=== PATIENT | female | born 1975 | race African-American/Black ===

== ENCOUNTER 2017-10-17 03:30 | Emergency (ER) | payer BC, MEDICAID ==
[~2017-10-17] VITALS: Ht 167.6 cm; Wt 140.0 kg
[~2017-10-17 03:30] MED LIST: VITAMIN; [UNRECOGNIZED DRUG - REMARK]
[2017-10-17] MEDS ORDERED: SODIUM CHLORIDE 0.9% 1,000 ML IV ONE (04:45)
[2017-10-17 05:13] LABS: CHLORIDE 102 mEq/L (98-107)
[2017-10-17 05:14] LABS: BASOPHILS % 0.7 % (0.0-2.0); HEMOGLOBIN. 13.1 g/dL (12.0-16.0); LYMPHOCYTES % 30.5 % (20.0-50.0); MEAN CORPUSCULAR VOLUME 85.3 fL (81.0-99.0); MEAN PLATELET VOLUME 9.2 fl (7.4-10.4); MONOCYTES % 13.4 % (2.0-8.0); NEUTROPHILS % 47.4 % (40.0-76.0); PLATELET 240 x1000/uL (130-400); RED BLOOD CELL COUNT 4.69 mill/uL (4.2-5.4); RED CELL DISTRIBUTION WIDTH 14.5 % (11.6-14.6)
[2017-10-17] MEDS ORDERED: KETOROLAC 30MG/ML VIAL IV ONE (05:15)
[2017-10-17 05:23] LABS: B-HCG QUANTITATIVE < 1 mIU/mL (<3)
[2017-10-17 07:51] VITALS: BP 118/58
== END 2017-10-17 07:52 | disposition home or self-care (01) ==
LOC: ER 03:30
DX: D25.9 Leiomyoma of uterus, unspecified (principal); I10 Essential (primary) hypertension; N92.0 Excessive and frequent menstruation with regular cycle; V43.52XA Car driver injured in collision with other type car in traffic accident, initial encounter; N83.201 Unspecified ovarian cyst, right side
CPT/HCPCS: 36415; 76856; 80053; 84702; 85025; 86850; 86900; 86901; 96374; 99285; J1885; J7030; Z7610

== ENCOUNTER 2018-10-02 17:41 | Emergency (ER) | payer MEDICAID ==
[~2018-10-02] VITALS: Ht 172.7 cm; Wt 126.0 kg
[2018-10-02 21:27] VITALS: BP 130/74
== END 2018-10-02 21:33 | disposition home or self-care (01) ==
LOC: ER 17:41
DX: T81.31XD Disruption of external operation (surgical) wound, not elsewhere classified, subsequent encounter (principal); I10 Essential (primary) hypertension; E66.01 Morbid (severe) obesity due to excess calories; Z68.41 Body mass index [BMI] 40.0-44.9, adult; Z79.899 Other long term (current) drug therapy; Z90.710 Acquired absence of both cervix and uterus
CPT/HCPCS: 99283

== ENCOUNTER 2018-12-19 10:07 | Inpatient (IN) | payer MEDICAID ==
[~2018-12-19] VITALS: Ht 154.9 cm; Wt 127.0 kg
[2018-12-19] MEDS ORDERED: ACETAMINOPHEN 650MG/20.3ML UDC PO ONE (10:30)
[2018-12-19] MEDS ORDERED: SODIUM CHLORIDE 0.9% 1000ML BAG (SEPSIS BOLUS) IV ONE (10:30)
[2018-12-19] MEDS ORDERED: KETOROLAC 15MG/ML VIAL IV ONE (10:30)
[2018-12-19] MEDS ORDERED: CEFTRIAXONE 1 G PREMIX 50 ML IV STA (10:53)
[2018-12-19] MEDS ORDERED: AZITHROMYCIN 500 MG in DEXT 5% WATER 250 ML IV STA (10:53)
[2018-12-19 11:07] LABS: BASOPHILS % 0.3 % (0.0-2.0); EOSINOPHILS % 0.3 % (0.0-5.0); HEMATOCRIT. 37.1 % (36.0-48.0); HEMOGLOBIN. 12.2 g/dL (12.0-16.0); LYMPHOCYTES % 7.1 % (20.0-50.0); MEAN CORPUSCULAR HEMOGLOBIN 26.4 pg (28.0-32.0); MEAN CORPUSCULAR VOLUME 80.1 fL (81.0-99.0); MONOCYTES % 13.3 % (2.0-8.0); PLATELET 198 x1000/uL (130-400); RED BLOOD CELL COUNT 4.63 mill/uL (4.2-5.4); RED CELL DISTRIBUTION WIDTH 16.2 % (11.6-14.6)
[2018-12-19 11:16] LABS: CHLORIDE 100 mEq/L (98-107); INR 1.1; PROTHROMBIN TIME 11.8 sec (9.6-11.0)
[2018-12-19 11:29] LABS: CLARITY URINE TURBID (CLEAR); COLOR URINE DARK YELLOW (YELLOW); KETONES URINE TRACE (NEGATIVE); LEUKOCYTE ESTERASE URINE TRACE (NEGATIVE); NITRITE URINE NEGATIVE (NEGATIVE); OCCULT BLOOD URINE NEGATIVE (NEGATIVE); PH URINE 5.5 (4.5-8.0); PROTEIN URINE 3+ (NEGATIVE); SPECIFIC GRAVITY URINE 1.025 (1.005-1.030)
[2018-12-19 13:00] VITALS: BP 105/55
[2018-12-19] MEDS ORDERED: ONDANSETRON HCL 4MG/2ML INJ IV PRN (15:00)
[2018-12-19] MEDS ORDERED: HYDROCODONE/ACETAMINOPHEN 5/325MG TABLET PO PRN (15:00)
[2018-12-19] MEDS ORDERED: HYDR25TA PO (15:44)
[2018-12-19] MEDS ORDERED: AMLO10TA80 MT (15:44)
[2018-12-19] MEDS ORDERED: LOSA50TA41 MT (15:44)
[2018-12-19 16:00] VITALS: BP 121/46
[2018-12-19] MEDS: SODIUM CHLORIDE 0.9% 1,000 ML IV SCH (18:04)
[2018-12-19] MEDS: ACETAMINOPHEN 325MG TABLET PO PRN (18:04)
[2018-12-19] MEDS: AZITHROMYCIN 500 MG in DEXT 5% WATER 250 ML IV SCH (18:15)
[2018-12-19 20:06] VITALS: BP 124/75
[2018-12-19] MEDS ORDERED: ENOXAPARIN 40MG/0.4ML SYR SUBCUT SCH (21:00)
[2018-12-19] MEDS ORDERED: IOHEXOL-350 100 ML BOTTLE ONE (22:47)
[2018-12-20] VITALS: BP 95/49
[2018-12-20 02:14] LABS: CREATINE KINASE 471 IU/L (26-192)
[2018-12-20 02:15] LABS: CREATINE KINASE MB FRACTION < 1.0 ng/mL (0.5-3.6)
[2018-12-20 04:00] VITALS: BP 117/53
[2018-12-20] MEDS: SODIUM CHLORIDE 0.9% 1,000 ML IV SCH ×2 (06:17→11:00)
[2018-12-20] MEDS: ACETAMINOPHEN 325MG TABLET PO PRN (06:24)
[2018-12-20 06:56] LABS: HEMATOCRIT. 36.3 % (36.0-48.0); HEMOGLOBIN. 12.1 g/dL (12.0-16.0); MEAN CORPUSCULAR HEMOGLOBIN 26.6 pg (28.0-32.0); MEAN CORPUSCULAR VOLUME 79.7 fL (81.0-99.0); MEAN PLATELET VOLUME 10.3 fl (7.4-10.4); PLATELET 194 x1000/uL (130-400); RED BLOOD CELL COUNT 4.56 mill/uL (4.2-5.4); RED CELL DISTRIBUTION WIDTH 16.8 % (11.6-14.6)
[2018-12-20 07:24] LABS: CHLORIDE 102 mEq/L (98-107)
[2018-12-20 07:47] LABS: CREATINE KINASE MB FRACTION < 1.0 ng/mL (0.5-3.6)
[2018-12-20 07:49] LABS: CREATINE KINASE 534 IU/L (26-192)
[2018-12-20 07:51] LABS: HDL CHOLESTEROL 32 mg/dL (40-59); LDL CHOLESTEROL 53 mg/dL (5-100)
[2018-12-20 08:00] VITALS: BP 111/58
[2018-12-20] MEDS ORDERED: LOSARTAN POTASSIUM 50 MG TABLET PO SCH (09:00)
[2018-12-20] MEDS ORDERED: HYDROCHLOROTHIAZIDE 25MG TABLET PO SCH ×3 (09:00)
[2018-12-20] MEDS: LOSARTAN POTASSIUM 50 MG TABLET PO SCH (09:00)
[2018-12-20] MEDS ORDERED: MEDICATION NOT ON FORMULARY EA (Losartan Potassium 1 TAB) MT SCH (09:00)
[2018-12-20] MEDS ORDERED: AMLODIPINE 10MG TABLET PO SCH ×3 (09:00)
[2018-12-20] MEDS ORDERED: ENOXAPARIN 40MG/0.4ML SYR SUBCUT SCH (10:30)
[2018-12-20] MEDS ORDERED: POTASSIUM CHLORIDE 20MEQ TABLET SR PO NR (10:30)
[2018-12-20] MEDS ORDERED: CLONIDINE 0.1MG TABLET PO PRN (11:15)
[2018-12-20 12:00] VITALS: BP 119/63
[2018-12-20 12:22] LABS: *COCAINE SCREEN URINE NEGATIVE (NEGATIVE); CANNABINOID URINE SCREEN NEGATIVE (NEGATIVE); METHADONE URINE SCREEN NEGATIVE (NEGATIVE)
[2018-12-20 12:23] LABS: *AMPHETAMINES SCREEN URINE NEGATIVE (NEGATIVE); *BARBITURATES SCREEN URINE NEGATIVE (NEGATIVE); *BENZODIAZEPINES SCREEN URINE NEGATIVE (NEGATIVE); OPIATES URINE SCREEN NEGATIVE (NEGATIVE)
[2018-12-20 12:27] LABS: PHENCYCLIDINE URINE SCREEN NEGATIVE (NEGATIVE)
[2018-12-20] MEDS ORDERED: METHYLPREDNISOLONE SOD SUCC 125 MG/2 ML VIAL IV NR (13:00)
[2018-12-20] MEDS: CEFTRIAXONE 1 G PREMIX 50 ML IV SCH (13:24)
[2018-12-20 16:00] VITALS: BP 116/61
[2018-12-20 16:06] LABS: CREATINE KINASE 652 IU/L (26-192)
[2018-12-20 16:07] LABS: CREATINE KINASE MB FRACTION < 1.0 ng/mL (0.5-3.6)
[2018-12-20] MEDS: IPRATROPIUM/ALBUTEROL 0.5-3(2.5)MG/3ML NEB HHN SCH ×2 (16:18→20:51)
[2018-12-20 16:52] LABS: PLATELET ESTIMATE NORMAL
[2018-12-20] MEDS: AZITHROMYCIN 500 MG in DEXT 5% WATER 250 ML IV SCH (18:11)
[2018-12-20 20:00] VITALS: BP 118/68
[2018-12-20] MEDS: METHYLPREDNISOLONE SOD SUCC 40 MG/ML VIAL IV SCH (21:58)
[2018-12-20] MEDS: ENOXAPARIN 30MG/0.3ML SYR SUBCUT SCH (21:58)
[2018-12-20] MEDS: AMLODIPINE 5MG TABLET PO SCH (21:59)
[2018-12-21] VITALS: BP 115/55
[2018-12-21] MEDS: IPRATROPIUM/ALBUTEROL 0.5-3(2.5)MG/3ML NEB HHN SCH ×6 (00:50→20:45)
[2018-12-21 04:00] VITALS: BP 127/71
[2018-12-21] MEDS: GUAIFENESIN/CODEINE 200-20MG/10ML UDC PO PRN ×2 (05:33→12:22)
[2018-12-21] MEDS: METHYLPREDNISOLONE SOD SUCC 40 MG/ML VIAL IV SCH ×3 (06:48→21:15)
[2018-12-21] MEDS: ENOXAPARIN 30MG/0.3ML SYR SUBCUT SCH ×2 (08:21→21:15)
[2018-12-21] MEDS: AMLODIPINE 5MG TABLET PO SCH ×2 (08:22→21:00)
[2018-12-21] MEDS: LOSARTAN POTASSIUM 50 MG TABLET PO SCH (08:22)
[2018-12-21] MEDS ORDERED: POTASSIUM CHLORIDE 20MEQ TABLET SR PO NR (11:45)
[2018-12-21] MEDS: CEFTRIAXONE 1 G PREMIX 50 ML IV SCH (12:20)
[2018-12-21] MEDS: SODIUM CHLORIDE 0.9% 1,000 ML IV SCH (12:21)
[2018-12-21] MEDS ORDERED: VANCOMYCIN 2,000 MG in DEXT 5% WATER 500 ML IV NR (16:00)
[2018-12-21] MEDS: AZITHROMYCIN 500 MG in DEXT 5% WATER 250 ML IV SCH (16:53)
[2018-12-21 20:00] VITALS: BP 116/54
[2018-12-22] VITALS: BP 139/63
[2018-12-22] MEDS: IPRATROPIUM/ALBUTEROL 0.5-3(2.5)MG/3ML NEB HHN SCH ×6 (01:12→19:59)
[2018-12-22] MEDS ORDERED: VANCOMYCIN 1250MG in DEXTROSE 5% WATER 250ML IV SCH (02:00)
[2018-12-22] MEDS: GUAIFENESIN/CODEINE 200-20MG/10ML UDC PO PRN ×2 (02:29→23:13)
[2018-12-22] MEDS: SODIUM CHLORIDE 0.9% 1,000 ML IV SCH ×4 (02:30→23:00)
[2018-12-22 04:00] VITALS: BP 138/81
[2018-12-22] MEDS: METHYLPREDNISOLONE SOD SUCC 40 MG/ML VIAL IV SCH ×3 (06:18→21:53)
[2018-12-22] MEDS: ACETAMINOPHEN 325MG TABLET PO PRN (06:53)
[2018-12-22 07:45] LABS: HEMATOCRIT. 32.1 % (36.0-48.0); HEMOGLOBIN. 10.6 g/dL (12.0-16.0); MEAN CORPUSCULAR HEMOGLOBIN 26.1 pg (28.0-32.0); MEAN CORPUSCULAR VOLUME 79.4 fL (81.0-99.0); MEAN PLATELET VOLUME 10.4 fl (7.4-10.4); PLATELET 200 x1000/uL (130-400); RED BLOOD CELL COUNT 4.05 mill/uL (4.2-5.4); RED CELL DISTRIBUTION WIDTH 16.3 % (11.6-14.6)
[2018-12-22 07:59] LABS: CHLORIDE 100 mEq/L (98-107)
[2018-12-22 08:00] VITALS: BP 117/64
[2018-12-22] MEDS: AMLODIPINE 5MG TABLET PO SCH ×2 (08:42→21:53)
[2018-12-22] MEDS: LOSARTAN POTASSIUM 50 MG TABLET PO SCH (09:34)
[2018-12-22] MEDS: ENOXAPARIN 30MG/0.3ML SYR SUBCUT SCH ×2 (09:34→21:52)
[2018-12-22 10:49] LABS: PLATELET ESTIMATE NORMAL
[2018-12-22 12:00] VITALS: BP 106/43
[2018-12-22] MEDS: CEFTRIAXONE 1 G PREMIX 50 ML IV SCH (12:16)
[2018-12-22 16:00] VITALS: BP 113/68
[2018-12-22] MEDS: AZITHROMYCIN 500 MG in DEXT 5% WATER 250 ML IV SCH (16:57)
[2018-12-22] MEDS: VANCOMYCIN 1250MG in DEXTROSE 5% WATER 250ML IV SCH (17:52)
[2018-12-22 20:00] VITALS: BP 144/80
[2018-12-22] MEDS ORDERED: POTASSIUM CHLORIDE 20MEQ TABLET SR PO NR (22:00)
[2018-12-23] VITALS: BP 120/70
[2018-12-23] MEDS: IPRATROPIUM/ALBUTEROL 0.5-3(2.5)MG/3ML NEB HHN SCH ×5 (00:59→16:45)
[2018-12-23 03:59] LABS: HEMATOCRIT. 33.8 % (36.0-48.0); HEMOGLOBIN. 11.1 g/dL (12.0-16.0); MEAN CORPUSCULAR VOLUME 79.3 fL (81.0-99.0); MEAN PLATELET VOLUME 9.1 fl (7.4-10.4); PLATELET 193 x1000/uL (130-400); RED BLOOD CELL COUNT 4.26 mill/uL (4.2-5.4); RED CELL DISTRIBUTION WIDTH 16.9 % (11.6-14.6)
[2018-12-23 04:00] VITALS: BP 115/68
[2018-12-23 04:02] LABS: CHLORIDE 104 mEq/L (98-107)
[2018-12-23 04:10] LABS: VANCOMYCIN TROUGH 13.8 ug/mL (5.0-10.0)
[2018-12-23] MEDS: METHYLPREDNISOLONE SOD SUCC 40 MG/ML VIAL IV SCH ×3 (05:22→21:31)
[2018-12-23] MEDS: VANCOMYCIN 1250MG in DEXTROSE 5% WATER 250ML IV SCH (05:22)
[2018-12-23 07:08] LABS: PLATELET ESTIMATE NORMAL
[2018-12-23 08:00] VITALS: BP 116/59
[2018-12-23] MEDS: AMLODIPINE 5MG TABLET PO SCH ×2 (08:49→21:00)
[2018-12-23] MEDS: GUAIFENESIN/CODEINE 200-20MG/10ML UDC PO PRN ×2 (09:00→22:22)
[2018-12-23] MEDS: LOSARTAN POTASSIUM 50 MG TABLET PO SCH (09:00)
[2018-12-23] MEDS: ENOXAPARIN 30MG/0.3ML SYR SUBCUT SCH ×2 (09:00→21:32)
[2018-12-23 12:00] VITALS: BP 100/48
[2018-12-23] MEDS: CEFTRIAXONE 1 G PREMIX 50 ML IV SCH (12:22)
[2018-12-23 16:00] VITALS: BP 116/49
[2018-12-23] MEDS: AZITHROMYCIN 500 MG in DEXT 5% WATER 250 ML IV SCH (17:26)
[2018-12-23] MEDS ORDERED: VANCOMYCIN 1500MG in DEXTROSE 5% WATER 250ML IV SCH (18:00)
[2018-12-23 20:00] VITALS: BP 100/60
[2018-12-24] VITALS (7 sets, daily range): BP systolic 99–125; BP diastolic 53–75
[2018-12-24] MEDS: SODIUM CHLORIDE 0.9% 1,000 ML IV SCH (00:39)
[2018-12-24] MEDS: IPRATROPIUM/ALBUTEROL 0.5-3(2.5)MG/3ML NEB HHN SCH ×5 (04:55→20:32)
[2018-12-24] MEDS: METHYLPREDNISOLONE SOD SUCC 40 MG/ML VIAL IV SCH ×2 (05:38→13:38)
[2018-12-24] MEDS: AMLODIPINE 5MG TABLET PO SCH (09:00)
[2018-12-24] MEDS: LOSARTAN POTASSIUM 50 MG TABLET PO SCH (09:00)
[2018-12-24] MEDS: ENOXAPARIN 30MG/0.3ML SYR SUBCUT SCH (09:31)
[2018-12-24] MEDS: CEFTRIAXONE 1 G PREMIX 50 ML IV SCH (12:07)
[2018-12-24] MEDS: AZITHROMYCIN 500 MG in DEXT 5% WATER 250 ML IV SCH (17:47)
== END 2018-12-24 21:30 | disposition home or self-care (01) | DRG 720 ==
LOC: ER 10:07 → 8WST 11:26 → EDBEDREQ 11:29 → EDBEDREQTM 11:29 → EDBEDREQSVC 11:29 → ENRESERV 12:04
PROVIDERS: ADMIT Internal Medicine; ATTEND Internal Medicine
PROC: 5A09357 Assistance with Respiratory Ventilation, Less than 24 Consecutive Hours, Continuous Positive Airway Pressure (ICD-10-PCS; principal; 2018-12-23)
PROC: 5A09357 Assistance with Respiratory Ventilation, Less than 24 Consecutive Hours, Continuous Positive Airway Pressure (ICD-10-PCS; 2018-12-24)
DX: A41.9 Sepsis, unspecified organism (principal); J96.01 Acute respiratory failure with hypoxia; J18.1 Lobar pneumonia, unspecified organism; E46 Unspecified protein-calorie malnutrition; I10 Essential (primary) hypertension; R07.89 Other chest pain; N39.0 Urinary tract infection, site not specified; G47.33 Obstructive sleep apnea (adult) (pediatric); E87.6 Hypokalemia; E66.01 Morbid (severe) obesity due to excess calories; R65.20 Severe sepsis without septic shock; Z90.710 Acquired absence of both cervix and uterus; Z68.43 Body mass index [BMI] 50.0-59.9, adult; Z82.49 Family history of ischemic heart disease and other diseases of the circulatory system; Z83.3 Family history of diabetes mellitus
CPT/HCPCS: 36415; 71045; 71275; 80048; 80061; 80202; 80305; 82550; 82553; 83605; 83735; 83880; 84145; 84484; 85379; 87070; 87077; 93005; 93306; 93970; 94640; 94660; 96374; 97116; 97162; 99291; J0456; J0696; J1650; J1885; J2920; J2930; J3370; J7030; J7060; J7620; Q9967

== ENCOUNTER 2020-04-11 17:58 | Emergency (ER) | payer MEDICAID ==
[~2020-04-11] VITALS: Ht 154.9 cm; Wt 146.0 kg
[~2020-04-11 17:58] MED LIST changes: +AMLO10TA80 MT; +HYDR25TA PO; +LOSA50TA41 MT; -VITAMIN; -[UNRECOGNIZED DRUG - REMARK]
[2020-04-11] MEDS ORDERED: MONT10TA21 MT (18:06)
[2020-04-11] MEDS ORDERED: ALBU18HF2 IH (18:06)
[2020-04-11] MEDS ORDERED: LOSARTAN POTASSIUM 50 MG TABLET PO SCH (21:00)
[2020-04-11] MEDS ORDERED: AMLODIPINE 10MG TABLET PO ONE (21:00)
[2020-04-11] MEDS ORDERED: ACETAMINOPHEN 325MG TABLET PO ONE (21:00)
[2020-04-11] MEDS ORDERED: HYDROCHLOROTHIAZIDE 25MG TABLET PO ONE (21:00)
[2020-04-11 23:23] VITALS: BP 127/88
== END 2020-04-11 23:00 | disposition home or self-care (01) ==
LOC: ER 17:58
DX: I10 Essential (primary) hypertension (principal); Z76.0 Encounter for issue of repeat prescription; Z00.00 Encounter for general adult medical examination without abnormal findings; J45.909 Unspecified asthma, uncomplicated; Z90.710 Acquired absence of both cervix and uterus
CPT/HCPCS: 93005; 99284

== ENCOUNTER 2020-05-24 16:26 | Inpatient (IN) | payer MEDICAID ==
[~2020-05-24] VITALS: Ht 154.9 cm; Wt 139.3 kg
[~2020-05-24 16:26] MED LIST changes: +ALBU18HF2 IH; +MONT10TA21 MT
[2020-05-24 18:36] LABS: HEMATOCRIT. 35.6 % (36.0-48.0); MEAN CORPUSCULAR HEMOGLOBIN 27.7 pg (28.0-32.0); MEAN CORPUSCULAR VOLUME 82.2 fL (81.0-99.0); MEAN PLATELET VOLUME 9.9 fl (7.4-10.4); PLATELET 183 x1000/uL (130-400); RED BLOOD CELL COUNT 4.33 mill/uL (4.2-5.4)
[2020-05-24 18:44] LABS: D-DIMER 0.56 mg/L FEU (<0.50); INR 1.1; PROTHROMBIN TIME 11.5 sec (9.6-11.0)
[2020-05-24] MEDS ORDERED: PIPERACILLIN/TAZ 3.375G PREMIX 50 ML IV ONE (18:45)
[2020-05-24] MEDS ORDERED: DEXAMETHASONE 10 MG/ML VIAL IV ONE (18:45)
[2020-05-24] MEDS ORDERED: VANCOMYCIN 1 G PREMIX 200 ML IV ONE (18:45)
[2020-05-24 18:48] LABS: CHLORIDE 98 mEq/L (98-107)
[2020-05-24] MEDS ORDERED: POTASSIUM CHLORIDE 20MEQ TABLET SR PO ONE (19:00)
[2020-05-24 19:38] LABS: PLATELET ESTIMATE NORMAL
[2020-05-24] MEDS ORDERED: ALBUTEROL 6.7GM HFA INHALER ORI PRN (21:15)
[2020-05-24] MEDS ORDERED: ONDANSETRON HCL 4MG/2ML INJ IV PRN (21:15)
[2020-05-24] MEDS ORDERED: IOHEXOL-300 100 ML BOTTLE ONE (23:18)
[2020-05-25 11:18] LABS: BG CARBOXYHEMOGLOBIN 0.3 % (0.5-1.5); BG DEOXYHEMOGLOBIN 5.3 % (0.0-5.0); BG FRACTION INSPIRED OXYGEN 28; BG HCO3 ACT 29.1 mmol/L (22.0-26.0); BG OXYGEN SATURATION 94.7 % (92.0-98.5); BG OXYHEMOGLOBIN 94.4 % (94.0-97.0); BG PCO2 45.4 mmHg (35.0-45.0); BG PH 7.425 (7.350-7.450); BG PO2 70.3 mmHg (75.0-100.0); BG SAMPLE SITE RIGHT RADIAL; BG TOTAL HEMOGLOBIN 13.8 g/dL (12.0-18.0); BG VENT MODE NASAL CANNULA
[2020-05-25 13:00] VITALS: BP 101/60
[2020-05-25] MEDS ORDERED: METF-414 MT (14:07)
[2020-05-25] MEDS ORDERED: FLUT1BLS9 IH (14:07)
[2020-05-25 16:00] VITALS: BP 103/43
[2020-05-25] MEDS ORDERED: ALBUTEROL 6.7GM HFA INHALER ORI SCH (17:00)
[2020-05-25] MEDS: METFORMIN HCL 500MG TABLET PO SCH (17:44)
[2020-05-25] MEDS ORDERED: AZITHROMYCIN 500 MG TABLET PO NR (18:00)
[2020-05-25 18:09] LABS: BG CARBOXYHEMOGLOBIN 0.4 % (0.5-1.5); BG DEOXYHEMOGLOBIN 16.8 % (0.0-5.0); BG HCO3 ACT 29.1 mmol/L (22.0-26.0); BG METHEMOGLOBIN 0.3 % (0.0-1.5); BG OXYGEN SATURATION 83.1 % (92.0-98.5); BG OXYHEMOGLOBIN 82.5 % (94.0-97.0); BG PCO2 40.7 mmHg (35.0-45.0); BG PH 7.472 (7.350-7.450); BG PO2 42.7 mmHg (75.0-100.0); BG TOTAL HEMOGLOBIN 14.7 g/dL (12.0-18.0)
[2020-05-25] MEDS: CEFTRIAXONE 1,000 MG in DEXTROSE 5% WATER 50 ML IV SCH (18:55)
[2020-05-25 20:00] VITALS: BP 117/69
[2020-05-25] MEDS: ENOXAPARIN 40MG/0.4ML SYR SUBCUT SCH (21:52)
[2020-05-25] MEDS: ACETAMINOPHEN 325MG TABLET PO PRN (21:53)
[2020-05-26] VITALS: BP 114/71
[2020-05-26 04:00] VITALS: BP 120/65
[2020-05-26 08:00] VITALS: BP 116/75
[2020-05-26] MEDS: AMLODIPINE 10MG TABLET PO SCH (09:00)
[2020-05-26] MEDS: ACETAMINOPHEN 325MG TABLET PO PRN (10:11)
[2020-05-26] MEDS: HYDROCHLOROTHIAZIDE 25MG TABLET PO SCH (10:12)
[2020-05-26] MEDS: ENOXAPARIN 40MG/0.4ML SYR SUBCUT SCH ×2 (10:12→22:54)
[2020-05-26] MEDS: LOSARTAN POTASSIUM 50 MG TABLET PO SCH (10:12)
[2020-05-26] MEDS: METFORMIN HCL 500MG TABLET PO SCH ×2 (10:12→17:14)
[2020-05-26] MEDS: MONTELUKAST SODIUM 10MG TABLET PO SCH (10:12)
[2020-05-26 12:00] VITALS: BP 115/77
[2020-05-26 16:00] VITALS: BP 116/71
[2020-05-26] MEDS: IPRATROPIUM/ALBUTEROL 0.5-3(2.5)MG/3ML NEB HHN SCH ×2 (16:39→21:06)
[2020-05-26] MEDS: AZITHROMYCIN 250 MG TABLET PO SCH (17:14)
[2020-05-26] MEDS: CEFTRIAXONE 1,000 MG in DEXTROSE 5% WATER 50 ML IV SCH (17:14)
[2020-05-26 17:53] LABS: BASOPHILS % 0.4 % (0.0-2.0); EOSINOPHILS % 0.1 % (0.0-5.0); HEMATOCRIT. 42.4 % (36.0-48.0); HEMOGLOBIN. 13.9 g/dL (12.0-16.0); LYMPHOCYTES % 15.2 % (20.0-50.0); MEAN CORPUSCULAR HEMOGLOBIN 27.2 pg (28.0-32.0); MEAN CORPUSCULAR VOLUME 82.9 fL (81.0-99.0); MEAN PLATELET VOLUME 9.5 fl (7.4-10.4); MONOCYTES % 12.4 % (2.0-8.0); NEUTROPHILS % 71.9 % (40.0-76.0); PLATELET 213 x1000/uL (130-400); RED BLOOD CELL COUNT 5.11 mill/uL (4.2-5.4); RED CELL DISTRIBUTION WIDTH 14.3 % (11.6-14.6)
[2020-05-26 18:01] LABS: CHLORIDE 97 mEq/L (98-107)
[2020-05-26] MEDS ORDERED: POTASSIUM CHLORIDE 20MEQ TABLET SR PO SCH (20:00)
[2020-05-26 20:30] VITALS: BP 134/83
[2020-05-27 00:08] VITALS: BP 116/74
[2020-05-27] MEDS: ACETAMINOPHEN 325MG TABLET PO PRN ×3 (00:31→18:03)
[2020-05-27] MEDS: IPRATROPIUM/ALBUTEROL 0.5-3(2.5)MG/3ML NEB HHN SCH ×6 (00:59→22:10)
[2020-05-27 04:00] VITALS: BP 117/75
[2020-05-27 08:00] VITALS: BP 118/79
[2020-05-27] MEDS: HYDROCHLOROTHIAZIDE 25MG TABLET PO SCH (08:17)
[2020-05-27] MEDS: AMLODIPINE 10MG TABLET PO SCH (08:17)
[2020-05-27] MEDS: ENOXAPARIN 40MG/0.4ML SYR SUBCUT SCH ×2 (08:17→22:04)
[2020-05-27] MEDS: METFORMIN HCL 500MG TABLET PO SCH ×2 (08:17→18:03)
[2020-05-27] MEDS: MONTELUKAST SODIUM 10MG TABLET PO SCH (08:17)
[2020-05-27] MEDS: LOSARTAN POTASSIUM 50 MG TABLET PO SCH (08:17)
[2020-05-27 17:35] LABS: BASOPHILS % 0.3 % (0.0-2.0); EOSINOPHILS % 0.4 % (0.0-5.0); HEMATOCRIT. 37.5 % (36.0-48.0); HEMOGLOBIN. 12.4 g/dL (12.0-16.0); LYMPHOCYTES % 14.4 % (20.0-50.0); MEAN CORPUSCULAR HEMOGLOBIN 27.1 pg (28.0-32.0); MEAN CORPUSCULAR VOLUME 82.4 fL (81.0-99.0); MEAN PLATELET VOLUME 9.3 fl (7.4-10.4); MONOCYTES % 10.6 % (2.0-8.0); NEUTROPHILS % 74.3 % (40.0-76.0); PLATELET 195 x1000/uL (130-400); RED BLOOD CELL COUNT 4.55 mill/uL (4.2-5.4); RED CELL DISTRIBUTION WIDTH 14.1 % (11.6-14.6)
[2020-05-27 17:51] LABS: CHLORIDE 97 mEq/L (98-107)
[2020-05-27] MEDS: CEFTRIAXONE 1,000 MG in DEXTROSE 5% WATER 50 ML IV SCH (18:03)
[2020-05-27] MEDS: AZITHROMYCIN 250 MG TABLET PO SCH (18:03)
[2020-05-27] MEDS ORDERED: POTASSIUM CHLORIDE 20MEQ TABLET SR PO NR (18:15)
[2020-05-27] MEDS ORDERED: ALBUTEROL (0.083%) 2.5MG/3ML NEB HHN PRN (20:15)
[2020-05-27 20:48] VITALS: BP 110/69
[2020-05-27] MEDS: METHYLPREDNISOLONE SOD SUCC 40 MG/ML VIAL IV SCH (22:04)
[2020-05-28 00:45] VITALS: BP 113/67
[2020-05-28] MEDS: IPRATROPIUM/ALBUTEROL 0.5-3(2.5)MG/3ML NEB HHN SCH ×6 (01:40→21:26)
[2020-05-28 04:00] VITALS: BP 130/76
[2020-05-28 07:09] LABS: BASOPHILS % 0.1 % (0.0-2.0); CHLORIDE 97 mEq/L (98-107); EOSINOPHILS % 0.1 % (0.0-5.0); HEMATOCRIT. 36.8 % (36.0-48.0); HEMOGLOBIN. 12.2 g/dL (12.0-16.0); LYMPHOCYTES % 7.3 % (20.0-50.0); MEAN CORPUSCULAR HEMOGLOBIN 27.4 pg (28.0-32.0); MEAN CORPUSCULAR VOLUME 82.2 fL (81.0-99.0); MEAN PLATELET VOLUME 9.5 fl (7.4-10.4); MONOCYTES % 4.5 % (2.0-8.0); PLATELET 224 x1000/uL (130-400); RED BLOOD CELL COUNT 4.47 mill/uL (4.2-5.4); RED CELL DISTRIBUTION WIDTH 14.3 % (11.6-14.6)
[2020-05-28 08:00] VITALS: BP 126/52
[2020-05-28] MEDS: METHYLPREDNISOLONE SOD SUCC 40 MG/ML VIAL IV SCH ×3 (08:06→21:04)
[2020-05-28] MEDS: AMLODIPINE 10MG TABLET PO SCH (09:00)
[2020-05-28] MEDS: HYDROCHLOROTHIAZIDE 25MG TABLET PO SCH (09:52)
[2020-05-28] MEDS: METFORMIN HCL 500MG TABLET PO SCH ×2 (09:52→17:10)
[2020-05-28] MEDS: MONTELUKAST SODIUM 10MG TABLET PO SCH (09:52)
[2020-05-28] MEDS: LOSARTAN POTASSIUM 50 MG TABLET PO SCH (09:52)
[2020-05-28] MEDS: ENOXAPARIN 40MG/0.4ML SYR SUBCUT SCH ×2 (10:04→21:04)
[2020-05-28 12:00] VITALS: BP 113/74
[2020-05-28 14:21] LABS: BG BASE EXCESS 4.3 mmol/L (-2.0-2.0); BG CARBOXYHEMOGLOBIN 0.7 % (0.5-1.5); BG DEOXYHEMOGLOBIN 30.7 % (0.0-5.0); BG FRACTION INSPIRED OXYGEN 21; BG HCO3 ACT 29.5 mmol/L (22.0-26.0); BG METHEMOGLOBIN 0.3 % (0.0-1.5); BG OXYHEMOGLOBIN 68.3 % (94.0-97.0); BG PCO2 46.4 mmHg (35.0-45.0); BG PH 7.421 (7.350-7.450); BG PO2 35.7 mmHg (75.0-100.0); BG SAMPLE SITE RIGHT RADIAL; BG TOTAL HEMOGLOBIN 13.4 g/dL (12.0-18.0); BG VENT MODE ROOM AIR
[2020-05-28 16:00] VITALS: BP 129/70
[2020-05-28] MEDS: AZITHROMYCIN 250 MG TABLET PO SCH (17:10)
[2020-05-28] MEDS: CEFTRIAXONE 1,000 MG in DEXTROSE 5% WATER 50 ML IV SCH (17:55)
[2020-05-28 20:00] VITALS: BP 144/96
[2020-05-29] VITALS: BP 131/83
[2020-05-29] MEDS: IPRATROPIUM/ALBUTEROL 0.5-3(2.5)MG/3ML NEB HHN SCH (01:05)
[2020-05-29] MEDS: METHYLPREDNISOLONE SOD SUCC 40 MG/ML VIAL IV SCH ×3 (03:51→21:58)
[2020-05-29 08:00] VITALS: BP 144/104
[2020-05-29] MEDS: METFORMIN HCL 500MG TABLET PO SCH ×2 (08:54→16:26)
[2020-05-29] MEDS: AMLODIPINE 10MG TABLET PO SCH (08:54)
[2020-05-29] MEDS: MONTELUKAST SODIUM 10MG TABLET PO SCH (08:54)
[2020-05-29] MEDS: LOSARTAN POTASSIUM 50 MG TABLET PO SCH (08:54)
[2020-05-29] MEDS: HYDROCHLOROTHIAZIDE 25MG TABLET PO SCH (08:54)
[2020-05-29] MEDS: ENOXAPARIN 40MG/0.4ML SYR SUBCUT SCH ×2 (08:54→21:58)
[2020-05-29 12:00] VITALS: BP 144/94
[2020-05-29 17:14] VITALS: BP 104/77
[2020-05-29] MEDS: CEFTRIAXONE 1,000 MG in DEXTROSE 5% WATER 50 ML IV SCH (17:47)
[2020-05-29] MEDS: AZITHROMYCIN 250 MG TABLET PO SCH (18:39)
[2020-05-29 20:00] VITALS: BP 90/40
[2020-05-30] VITALS: BP 113/67
[2020-05-30 04:00] VITALS: BP 109/61
[2020-05-30] MEDS: METHYLPREDNISOLONE SOD SUCC 40 MG/ML VIAL IV SCH ×3 (04:59→20:41)
[2020-05-30 08:00] VITALS: BP 105/68
[2020-05-30] MEDS: LOSARTAN POTASSIUM 50 MG TABLET PO SCH ×2 (09:00→09:23)
[2020-05-30] MEDS: HYDROCHLOROTHIAZIDE 25MG TABLET PO SCH (09:00)
[2020-05-30] MEDS: AMLODIPINE 10MG TABLET PO SCH (09:00)
[2020-05-30] MEDS: METFORMIN HCL 500MG TABLET PO SCH ×2 (09:23→18:11)
[2020-05-30] MEDS: MONTELUKAST SODIUM 10MG TABLET PO SCH (09:23)
[2020-05-30] MEDS: ENOXAPARIN 40MG/0.4ML SYR SUBCUT SCH ×2 (09:23→20:43)
[2020-05-30 12:00] VITALS: BP 103/64
[2020-05-30 16:00] VITALS: BP 93/54
[2020-05-30] MEDS: CEFTRIAXONE 1,000 MG in DEXTROSE 5% WATER 50 ML IV SCH (18:12)
[2020-05-30 20:00] VITALS: BP 114/68
[2020-05-31] VITALS: BP 116/84
[2020-05-31 04:00] VITALS: BP 124/72
[2020-05-31] MEDS: METHYLPREDNISOLONE SOD SUCC 40 MG/ML VIAL IV SCH ×3 (04:11→20:33)
[2020-05-31 08:00] VITALS: BP 105/61
[2020-05-31] MEDS: LOSARTAN POTASSIUM 50 MG TABLET PO SCH (09:00)
[2020-05-31] MEDS: AMLODIPINE 10MG TABLET PO SCH (09:00)
[2020-05-31] MEDS: HYDROCHLOROTHIAZIDE 25MG TABLET PO SCH (09:00)
[2020-05-31] MEDS: MONTELUKAST SODIUM 10MG TABLET PO SCH (09:12)
[2020-05-31] MEDS: METFORMIN HCL 500MG TABLET PO SCH ×2 (09:12→17:34)
[2020-05-31] MEDS: ENOXAPARIN 40MG/0.4ML SYR SUBCUT SCH ×2 (09:13→20:34)
[2020-05-31 12:00] VITALS: BP 113/66
[2020-05-31 15:40] LABS: BG BASE EXCESS 2.8 mmol/L (-2.0-2.0); BG CARBOXYHEMOGLOBIN 0.3 % (0.5-1.5); BG DEOXYHEMOGLOBIN 3.2 % (0.0-5.0); BG HCO3 ACT 28.4 mmol/L (22.0-26.0); BG OXYGEN SATURATION 96.8 % (92.0-98.5); BG OXYHEMOGLOBIN 96.5 % (94.0-97.0); BG PCO2 47.2 mmHg (35.0-45.0); BG PH 7.397 (7.350-7.450); BG PO2 90.5 mmHg (75.0-100.0); BG SAMPLE SITE RIGHT RADIAL; BG TOTAL HEMOGLOBIN 13.4 g/dL (12.0-18.0); BG VENT MODE NASAL CANNULA
[2020-05-31 16:00] VITALS: BP 119/65
[2020-05-31 17:52] LABS: BG BASE EXCESS 2.9 mmol/L (-2.0-2.0); BG CARBOXYHEMOGLOBIN 0.3 % (0.5-1.5); BG DEOXYHEMOGLOBIN 9.2 % (0.0-5.0); BG METHEMOGLOBIN 0.4 % (0.0-1.5); BG OXYGEN SATURATION 90.7 % (92.0-98.5); BG OXYHEMOGLOBIN 90.1 % (94.0-97.0); BG PCO2 44.8 mmHg (35.0-45.0); BG PH 7.414 (7.350-7.450); BG PO2 59.5 mmHg (75.0-100.0); BG SAMPLE SITE RIGHT RADIAL; BG TOTAL HEMOGLOBIN 14.1 g/dL (12.0-18.0); BG VENT MODE ROOM AIR
[2020-06-01] VITALS: BP 123/78
[2020-06-01 04:00] VITALS: BP 127/92
[2020-06-01] MEDS: METHYLPREDNISOLONE SOD SUCC 40 MG/ML VIAL IV SCH ×2 (04:00→11:10)
[2020-06-01 08:00] VITALS: BP 120/76
[2020-06-01] MEDS: IPRATROPIUM/ALBUTEROL 0.5-3(2.5)MG/3ML NEB HHN SCH ×3 (08:00→16:00)
[2020-06-01] MEDS: AMLODIPINE 10MG TABLET PO SCH (09:00)
[2020-06-01] MEDS: LOSARTAN POTASSIUM 50 MG TABLET PO SCH (09:00)
[2020-06-01] MEDS: HYDROCHLOROTHIAZIDE 25MG TABLET PO SCH (09:39)
[2020-06-01] MEDS: METFORMIN HCL 500MG TABLET PO SCH ×2 (09:39→17:16)
[2020-06-01] MEDS: MONTELUKAST SODIUM 10MG TABLET PO SCH (09:39)
[2020-06-01] MEDS: ENOXAPARIN 40MG/0.4ML SYR SUBCUT SCH (09:39)
[2020-06-01 12:00] VITALS: BP 117/71
[2020-06-01 16:00] VITALS: BP 132/90
[2020-06-01 18:36] VITALS: BP 132/90
== END 2020-06-01 19:45 | disposition home or self-care (01) | DRG 141 ==
LOC: ER 16:26 → 7WST 20:07 → EDBEDREQTM 20:24 → EDBEDREQ 20:24 → ENRESERV 05-25 10:19 → 6WST 05-25 22:41 → 7EST 05-29 02:20 → 6WST 05-29 17:35 → 6EST 05-30 17:17
PROVIDERS: ADMIT Internal Medicine; ATTEND Internal Medicine
PROC: 5A09357 Assistance with Respiratory Ventilation, Less than 24 Consecutive Hours, Continuous Positive Airway Pressure (ICD-10-PCS; principal; 2020-05-27)
DX: J45.901 Unspecified asthma with (acute) exacerbation (principal); J96.01 Acute respiratory failure with hypoxia; J12.9 Viral pneumonia, unspecified; E87.6 Hypokalemia; E66.9 Obesity, unspecified; E44.0 Moderate protein-calorie malnutrition; Z20.828 Contact with and (suspected) exposure to other viral communicable diseases; E87.1 Hypo-osmolality and hyponatremia; E11.9 Type 2 diabetes mellitus without complications; I10 Essential (primary) hypertension; G47.33 Obstructive sleep apnea (adult) (pediatric); Z68.43 Body mass index [BMI] 50.0-59.9, adult; Z79.899 Other long term (current) drug therapy; Z90.710 Acquired absence of both cervix and uterus; Z82.49 Family history of ischemic heart disease and other diseases of the circulatory system
CPT/HCPCS: 36415; 36600; 71045; 71275; 80048; 80053; 82375; 82805; 83605; 83880; 84145; 84484; 85025; 85379; 93005; 94640; 96365; 99291; C1893; J0696; J1100; J1650; J2543; J2920; J3370; J7060; Q9967; U0003

== ENCOUNTER 2021-04-30 10:05 | Emergency (ER) | payer MEDICAID ==
[~2021-04-30] VITALS: Ht 152.4 cm; Wt 146.0 kg
[~2021-04-30 10:05] MED LIST changes: +FLUT1BLS9 IH; +IPRA3AMP9 NEB; +METF-414 MT; +P20 MT
[2021-04-30] MEDS ORDERED: ACETAMINOPHEN WITH CODEINE 300/30MG TABLET PO STA (10:36)
[2021-04-30 11:40] LABS: CLARITY URINE TURBID (CLEAR); COLOR URINE YELLOW (YELLOW); KETONES URINE NEGATIVE (NEGATIVE); LEUKOCYTE ESTERASE URINE NEGATIVE (NEGATIVE); NITRITE URINE NEGATIVE (NEGATIVE); OCCULT BLOOD URINE NEGATIVE (NEGATIVE); PROTEIN URINE 1+ (NEGATIVE); SPECIFIC GRAVITY URINE 1.016 (1.005-1.030); UROBILINOGEN URINE 0.2 E.U./dL (0.2-1.0)
[2021-04-30] MEDS ORDERED: IBUP-2029 MT (12:37)
[2021-04-30 13:09] VITALS: BP 118/72
== END 2021-04-30 14:50 | disposition home or self-care (01) ==
LOC: ER 10:05
DX: S06.0X9A Concussion with loss of consciousness of unspecified duration, initial encounter (principal); E11.9 Type 2 diabetes mellitus without complications; J44.1 Chronic obstructive pulmonary disease with (acute) exacerbation; I10 Essential (primary) hypertension; J45.909 Unspecified asthma, uncomplicated; Z79.899 Other long term (current) drug therapy; X58.XXXA Exposure to other specified factors, initial encounter; Y93.89 Activity, other specified; Y92.89 Other specified places as the place of occurrence of the external cause; Y99.8 Other external cause status
CPT/HCPCS: 81003; 93005; 99285